=== PATIENT | female | born 2000 | race Caucasian/White ===

== ENCOUNTER 2023-11-12 13:30 | Emergency (ER) | payer BC, SELFPAY ==
[2023-11-12 13:44] VITALS: BP 101/61; PULSE 98; RESP 18; TEMP 36.9; O2SAT 100
--- NOTE | 2023-11-12 14:37 | ED.FEMALEGU ---
HPI - Female Genitourinary General Chief complaint: Urogenital-Female Stated complaint: Discharge, Odor, Stomach Cramps Source: patient and RN notes reviewed Mode of arrival: ambulatory Limitations: no limitations History of Present Illness HPI Narrative: 23-year-old female presented for complaint of vaginal discharge for 2-3 weeks. Endorses the discharge is Thin, white yellow or green with an odor. Endorses unprotected sexual activity with a new partner. Denies vaginal itching, hematuria, dysuria, nausea, vomiting, abdominal pain, break through bleeding, flank pain, constipation, diarrhea, fevers or chills. Patient has an IUD in place, but states she has at least 6 months overdue to have it checked. Plans to f/u with obgyn. Related Data Home Medications Medication Instructions Recorded Confirmed levonorgestrel 21 mcg/24 hr (up to 1 device intrauterine ONCE 11/12/23 11/12/23 8 years) 52 mg intrauterine device (Mirena) Allergies Allergy/AdvReac Type Severity Reaction Status Date / Time No Known Allergies Allergy Verified 11/12/23 13:47 Review of Systems Review of Systems: CONSTITUTIONAL: Denies body aches, fever, chills, or sweats. CARDIOVASCULAR: Denies chest pain, palpitations, or edema. RESPIRATORY: Denies cough or dyspnea. GASTROINTESTINAL: Denies abdominal pain, nausea, vomiting, or diarrhea. GENITOURINARY: Reports vaginal discharge, denies dysuria, frequency, urgency, hematuria, flank pain SKIN: Denies rash, itching, or wounds. MUSCULOSKELETAL: Denies back pain or myalgia. PMFSH Comments At time of signature, I have reviewed and agree with nursing past medical, surgical, social and family history unless otherwise noted. Please see nursing chart for further information. There is no relevant family history pertinent to the presenting complaint Exam Narrative: GENERAL: Well-appearing ENT: Mucous membranes pink and moist. NECK: Normal AROM. Supple. CHEST: No respiratory distress. Clear to auscultation. HEART: Regular rate and rhythm. ABDOMEN: Soft, nontender, nondistended, normal active bowel sounds. No CVA tenderness : Vagina: normal vaginal introitus, pink without discharge/bleeding or lesions. No swelling. Nontender. Cervix: normal appearance of the cervix, scant yellow drainage; closed No adnexal tenderness. Chaperoned by Gretchen TOLEDO SKIN: Warm, dry, no rash. NEURO: No focal deficits. Alert and oriented x3. Gait steady. PSYCH: Normal affect. Course Course Emergency Course: Patient is aware of diagnosis, understands and agrees to treatment plan. Anticipatory guidance given. Patient agrees to follow-up as directed and is aware of reasons to seek care at the emergency department. Portions of this record may have been created with voice recognition software Level of Care: Express Care Visit Vital Signs Vital signs: Vital Signs Temperature 98.4 F 11/12/23 13:44 Pulse Rate 98 11/12/23 13:44 Respiratory Rate 18 11/12/23 13:44 Blood Pressure 101/61 11/12/23 13:44 Pulse Oximetry 100 11/12/23 13:44 Oxygen Delivery Room Air 11/12/23 13:44 Temperature 98.4 F 11/12/23 13:44 Pulse Rate 98 11/12/23 13:44 Respiratory Rate 18 11/12/23 13:44 Blood Pressure 101/61 11/12/23 13:44 Pulse Oximetry 100 11/12/23 13:44 Oxygen Delivery Room Air 11/12/23 13:44 Reviewed MDM - Female Genitourinary MDM Narrative Medical decision making narrative: Patient presenting with concern for STD. Urine specimen collected for GC, chlamydia, trich, BV and yeast along with urine culture. Informed Pt will be contacted w/ results when they become available if they are positive. Discussed with patient that it takes up to 7 days for results of cultures to be released and explained that we may treat empirically at this time. Declines treatment at this time and will return should tests be positive. I have instructed the patient to return to the ER at any time i
[2023-11-12 20:28] LABS: Trichomonas Vag PCR NOT DETECTED (NOT DETECTE)
[2023-11-12 20:50] LABS: Chlamydia trachomatis NOT DETECTED (NOT DETECTE); Neisseria gonorrhoeae PCR NOT DETECTED (NOT DETECTE)
== END 2023-11-12 14:45 | disposition home or self-care (01) ==
PROVIDERS: Emergency Provider Nurse Practitioner Family
DX: Z20.2 Contact with and (suspected) exposure to infections with a predominantly sexual mode of transmission (principal)
CPT/HCPCS: 81003; 81513; 87070; 87086; 87088; 87491; 87591; 87661; 99214; G0463